=== PATIENT | male | born 1990 | race Caucasian/White ===

== ENCOUNTER 2020-01-01 20:01 | Emergency (ER) | payer BC, SELFPAY ==
--- NOTE | ~2020-01-01 | XR_ITS ---
EXAMINATION: XR chest 2V 01/01/2020 22:26 INDICATION: Chest pain PROCEDURE: 2 view chest COMPARISON: No prior studies for comparison. FINDINGS: The lungs are clear. The cardiomediastinal silhouette is within normal limits. There are no pleural effusions. There is no pneumothorax suspected. IMPRESSION: 1: NO ACUTE CARDIOPULMONARY DISEASE. Reviewed, dictated and finalized at location A.
[2020-01-01 20:16] VITALS: BP 156/99; PULSE 85; RESP 20; TEMP 36.7; O2SAT 100
--- NOTE | 2020-01-01 21:44 | ED.GENADULT ---
HPI - General Adult General Chief complaint: Unspecified Stated complaint: lightheadedness, chest tightness Time Seen by Provider: 01/01/20 21:44 Source: patient Mode of arrival: ambulatory Limitations: no limitations History of Present Illness HPI narrative: Patient is a 29-year-old male who presents for evaluation of lightheadedness, chest pain, tingling in his hands and fatigue. Patient reports a approximately 5-day history of all of the symptoms. He reports that chest pain has been constant over the right side of the chest. No radiation to the back, shoulder, jaw or left arm. No ripping or tearing sensation to the flank. No associated cough or shortness of breath. Patient states that he feels off and not his normal self. Patient is asking if we can check his cholesterol. He states he does not follow regularly with a primary care physician. He states he has a family history of heart disease. He denies any recent sick contacts. He denies fever, chills, rhinorrhea, cough or shortness of breath. No pleuritic chest pain. No recent surgery. Patient does have recent travel to [place] within the past month by car. No history of blood clots in the family. No lower extremity swelling, redness or pain. Related Data Home Medications Medication Instructions Recorded Confirmed No Home Medications 01/01/20 01/01/20 Allergies Allergy/AdvReac Type Severity Reaction Status Date / Time No Known Allergies Allergy Verified 01/01/20 20:02 Review of Systems Review of Systems: Narrative: CONSTITUTIONAL: Denies fever, chills, or sweats. EYES: Denies visual changes, redness, or discharge. ENT: Denies rhinorrhea, congestion, sore throat, or otalgia. CARDIOVASCULAR: Reports right-sided chest pain denies palpitations or edema RESPIRATORY: Denies cough or dyspnea. GASTROINTESTINAL: Denies abdominal pain, nausea, vomiting, or diarrhea. GENITOURINARY: Denies dysuria or hematuria. SKIN: Denies rash or itching. MUSCULOSKELETAL: Denies back pain, joint pain, or myalgia. NEUROLOGIC: Denies headache, numbness, or weakness. Reports lightheadedness. Denies dizziness. PSYCHIATRIC: Reports history of anxiety PMFSH Past Medical History Medical History (Updated 01/01/20 @ 23:31 by Samira Marcum MD) No pertinent past medical history Social History Social History (Updated 01/01/20 @ 22:05 by Samira Marcum MD) Smoking status: Never smoker Alcohol intake: never Substance use: never Living arrangements: with family Gender identity (if verbalized by the patient): Male Exam Narrative: Exam Narrative: GENERAL: Awake, alert, conversant HEAD: Normocephalic, atraumatic. EYES: PERRLA and EOMI. ENT: Nares clear, no rhinorrhea or epistaxis. Mucous membranes moist. NECK: Supple. CHEST: No respiratory distress, breathing even and non labored, no reproducible chest wall tenderness HEART: Regular rate, sinus rhythm ABDOMEN:Non distended, non tender EXTREMITIES: Normal range of motion. No edema. SKIN: Warm, dry, no rash. NEURO:No focal deficits. Alert and oriented x3. EOMs intact without nystagmus. No facial droop/asymmetry noted bilaterally. Grimace intact. Intact sensation in face. Hearing intact bilaterally. Shoulder shrug intact. Strength 5/5 bilateral upper extremities. Strength 5/5 bilateral lower extremities. Reflexes 2+ patellar. Heel to huynh intact bilaterally. Ambulatory with a narrow base, steady gait. Course Vital Signs Vital signs: Vital Signs Temperature 36.7 C 01/01/20 20:16 Pulse Rate 85 01/01/20 20:16 Respiratory Rate 20 01/01/20 20:16 Blood Pressure 156/99 H 01/01/20 20:16 Pulse Oximetry 100 01/01/20 20:16 Temperature 36.7 C 01/01/20 20:16 Pulse Rate 80 01/01/20 22:10 Respiratory Rate 18 01/01/20 22:10 Blood Pressure 167/95 H 01/01/20 22:10 Pulse Oximetry 98 01/01/20 22:10 Medical Decision Making MDM Narrative Medical decision making narrative: Patient presented for
--- NOTE | 2020-01-01 22:02 | ECG_ITS ---
Measurements Intervals [place] Rate: 78 P: 8 IN: 146 QRS: 4 QRSD: 96 T: 49 QT: 367 QTc: 418 Interpretive Statements SINUS RHYTHM VOLTAGE CRITERIA FOR LVH BORDERLINE ECG Electronically Signed On 01-02-2020 7:27:34 CDT by Alvarado Solano D.O.
[2020-01-01 22:10] VITALS: BP 167/95; PULSE 80; RESP 18; O2SAT 98
[2020-01-01 22:28] LABS: Basophils Percent Auto 0.4 % (0.2-1.2); Eosinophils Percent Auto 0.4 % (0-4.4); Hematocrit 48.3 % (42.0-52.0); Hemoglobin 16.5 g/dL (14.0-18.0); Immature Granulocyte Absolute 0.02 K/mm3 (0.00-0.031); Immature Granulocyte Percent A 0.2 % (0-0.5); Lymphocytes Absolute Auto 1.45 K/mm3 (0.9-3.2); Lymphocytes Percent Auto 13.8 % (18.3-44.2); Mean Corpuscular HGB Conc 34.2 g/dl (32-36); Mean Corpuscular Hemoglobin 27.5 pg (26-34); Mean Corpuscular Volume 80.5 fl (80-100); Mean Platelet Volume 9.3 fl (7.4-10.4); Monocytes Absolute Auto 0.6 K/mm3 (0.1-0.6); Monocytes Percent Auto 5.5 % (2.6-8.5); Neutrophils Absolute Auto 8.4 K/mm3 (1.3-6.7); Neutrophils Percent Auto 79.7 % (45.5-73.1); Platelet Count Result 383 k/mm3 (150-375); Red Cell Distribution Width 12.3 % (11.5-14.5); White Blood Count 10.5 K/mm3 (4.5-10.0)
[2020-01-01] MEDS: SODIUM CHLORIDE 0.9% IV 1,000 ML 999 ML IV CONT (22:28)
[2020-01-01] MEDS: ASPIRIN 81 MG CHEWABLE TABLET 324 MG PO (22:28)
[2020-01-01 22:40] LABS: Alanine Aminotransferase 35 U/L (4-50); Albumin Level 4.6 g/dL (3.5-5.1); Alkaline Phosphatase 67 U/L (38-126); Anion Gap 10 mmol/L (8-16); Aspartate Amino Transferase 26 U/L (17-59); Bilirubin,Total 0.5 mg/dL (0.2-1.3); Blood Urea Nitrogen 10 mg/dL (9-20); Calcium 9.3 mg/dL (8.4-10.2); Carbon Dioxide 23 mmol/L (22-30); Chloride 104 mmol/L (98-107); Estimated CRCL calculation 159 ml/min; Estimated Glomerular Filt Rate > 60; Glucose 132 mg/dL (75-110); Potassium 3.8 mmol/L (3.4-5.0); Sodium 137 mmol/L (137-145)
[2020-01-01 22:47] LABS: Add Urine Microscopic? YES; Appearance Urine Clear (Clear); Bacteria Urine Trace /hpf; Bilirubin Urine Negative (Negative); Blood Urine Negative (Negative); Color Urine Yellow (Yellow); Glucose Urine UA Negative (Negative); Ketones Urine Negative (Negative); Leukocyte Esterase Ur Negative LEU/UL (Negative); Mucus Urine Few /lpf; Nitrate Urine Negative (Negative); Protein Urine Negative (Negative); RBC Urine 0-2 /hpf (0-2); Specific Grav Ur 1.019 (1.001-1.035); Squamous Epithelial Cell Urine Rare /hpf (Few); Urobilinogen Urine Negative mg/dL (<2.0); WBC Urine 0-3 /hpf
[2020-01-01 22:52] LABS: NT Pro B Type Natriuretic Pept 25 PG/ML (5-100); Troponin I < 0.012 ng/mL (0.000-0.034)
[2020-01-01 23:07] LABS: Partial Thromboplastin Time 27.1 SECONDS (22.3-36.8)
[2020-01-01 23:09] LABS: D Dimer 0.38 ug/mL (<0.48)
[2020-01-02 00:17] VITALS: BP 151/87; PULSE 73; RESP 16; TEMP 37.1; O2SAT 100
[2020-01-02 13:28] LABS: SARS-CoV-2 RNA PCR Negative
== END 2020-01-02 00:19 | disposition home or self-care (01) ==
PROVIDERS: Emergency Provider Emergency Medicine; PCP Internal Medicine Infectious Disease
DX: R42 Dizziness and giddiness (principal); Z20.828 Contact with and (suspected) exposure to other viral communicable diseases
CPT/HCPCS: 36415; 71046; 80053; 81001; 83880; 84443; 84484; 85025; 85380; 85610; 85730; 87635; 93005; 96360; 99284; A9270; C9803; J7030; U0003

== ENCOUNTER 2021-08-24 13:39 | Emergency (ER) | payer BC, SELFPAY ==
--- NOTE | ~2021-08-24 | XR_ITS ---
EXAM: XR shoulder LT min 2V HISTORY: Musculoskeletal pain while working out, SNAPPED TENDONS COMPARISON: None available FINDINGS: Normal mineralization. No fracture or dislocation. No lytic or blastic lesion. Joint space s maintained. No erosion or periosteal change. Soft tissues within normal limits. IMPRESSION: No acute osseous finding in the left shoulder. Reviewed, dictated and finalized at location K.
[2021-08-24 13:40] VITALS: BP 171/80; PULSE 93; RESP 16; TEMP 37; O2SAT 100
--- NOTE | 2021-08-24 14:31 | ED.UPPEXIN ---
HPI - Extremity Injury (Upper) General Chief Complaint: Extremity Injury, Upper Stated Complaint: left shoulder Time Seen by Provider: 08/24/21 14:17 Source: patient and family Mode of arrival: ambulatory Limitations: no limitations History of Present Illness HPI narrative: Patient is 30 years old white male lifting weight, felt a snapping sensation to left shoulder anteriorly, 1 hour prior to arrival to the emergency room. Patient denies other symptoms. Patient denies any tingling, numbness or weakness of the left upper extremity. Related Data Allergies Allergy/AdvReac Type Severity Reaction Status Date / Time No Known Allergies Allergy Verified 01/01/20 20:02 Review of Systems Review of Systems: CONSTITUTIONAL: Denies fever, chills, or sweats. EYES: Denies visual changes, redness, or discharge. ENT: Denies rhinorrhea, congestion, sore throat, or otalgia. CARDIOVASCULAR: Denies chest pain, palpitations, or edema. RESPIRATORY: Denies cough or dyspnea. GASTROINTESTINAL: Denies abdominal pain, nausea, vomiting, or diarrhea. GENITOURINARY: Denies dysuria or hematuria. SKIN: Denies rash or itching. MUSCULOSKELETAL: Denies back pain, joint pain, or myalgia. NEUROLOGIC: Denies headache, numbness, or weakness. PSYCHIATRIC: Denies anxiety or depression. PMFSH Past Medical History Medical History No pertinent past medical history Social History Social History Smoking status: Never smoker Alcohol intake: never Substance use: never Gender identity (if verbalized by the patient): Male Exam Narrative: General appearance: Well-developed, well-nourished Skin: Normal color Head: Normocephalic, nontraumatic Neck: Supple, nontender Chest and respiratory: Airway patent, no respiratory distress, no accessory muscle use Heart: Regular rate/rhythm Abdomen: Soft, nontender, no organomegaly, quiet bowel sounds Vascular: Normal peripheral pulses, normal capillary refill. Musculoskeletal: Left shoulder showed diffuse tenderness anteriorly and left upper chest, no bruises, no swelling, no deformity Neurologic: Alert and oriented ?3, MIXER HELPER is normal as tested, no gross motor deficit Course Course Emergency Course: Musculoskeletal pain is my concern. Vital Signs Vital signs: Vital Signs Temperature 37.0 C 08/24/21 13:40 Pulse Rate 93 08/24/21 13:40 Respiratory Rate 16 08/24/21 13:40 Blood Pressure 171/80 H 08/24/21 13:40 Pulse Oximetry 100 08/24/21 13:40 Temperature 37.0 C 08/24/21 13:40 Pulse Rate 93 08/24/21 13:40 Respiratory Rate 16 08/24/21 13:40 Blood Pressure 171/80 H 08/24/21 13:40 Pulse Oximetry 100 08/24/21 13:40 MDM - Extremity Injury (Upper) Differential Diagnosis Differential diagnosis: Likely other (Strain, sprain, avulsion fracture) Imaging Data Radiologist's impression: Impressions Shoulder X-Ray 08/24/21 14:43 IMPRESSION: No acute osseous finding in the left shoulder. Critical Care Time Critical Care Time Critical Care Time: No Discharge Plan Discharge Clinical Impression: Musculoskeletal arm pain Qualifiers: Laterality: left Qualified Code(s): M79.602 - Pain in left arm Patient Disposition: Home, Self-Care Condition: Stable Instructions: Antibiotic Form, Musculoskeletal Pain (ED) Additional Instructions: Return if symptoms are worsening , call your family physician for appointment, take Tylenol as as needed for aches and pain, continue home medications. Ice pack 20 minutes/h for the next 24 hours, no working out for at least 1 week. Prescription
--- NOTE | 2021-08-24 15:15 | PC.NURSE ---
Patient report received from MICHELLE Gr. All questions answered and care of pt assumed.
--- NOTE | 2021-08-24 15:45 | PC.NURSE ---
Patient refused both [place] and Ibuprofen and states that he will get Flexeril prescription filled and take that at home instead.
== END 2021-08-24 16:00 | disposition home or self-care (01) ==
PROVIDERS: Emergency Provider Emergency Medicine
DX: S49.92XA Unspecified injury of left shoulder and upper arm, initial encounter (principal); X50.0XXA Overexertion from strenuous movement or load, initial encounter; Y93.B3 Activity, free weights
CPT/HCPCS: 73030; 99283; A4565

== ENCOUNTER 2023-03-23 08:07 | Emergency (ER) | payer BC, SELFPAY ==
--- NOTE | ~2023-03-23 | US_ITS ---
EXAMINATION: US venous doppler [facility] DATE: 03/23/2023 09:53 INDICATION: Left lower limb pain and swelling. TECHNIQUE: Grayscale ultrasound images without and with compression and Doppler ultrasound images of the left lower extremity veins were obtained. COMPARISON: None. FINDINGS: The visualized portions of left common femoral vein, profunda (deep) femoral vein, femoral vein, popl iteal vein, peroneal veins, posterior tibial veins, and greater saphenous vein outflow are patent. Th ere is thrombosis of superficial veins in left thigh and groin. IMPRESSION: 1. No deep venous thrombosis. 2 . Thrombosis of superficial veins in left thigh and groin. Reviewed, dictated and finalized at location A. RAL MIXER
[2023-03-23 08:10] VITALS: BP 118/75; PULSE 92; RESP 18; TEMP 36.1; O2SAT 100
--- NOTE | 2023-03-23 09:57 | ED.GENADULT ---
HPI - General Adult General Chief complaint: Extremity Injury, Lower Stated complaint: left upper leg wound (concerned about clot) Time Seen by Provider: 03/23/23 09:40 History of Present Illness HPI narrative: Dameon Stacy is a 32 y/o male who presents with reports of having a hx of varicose veins to his legs that he noticed about 5 years ago. He states that yesterday he noticed some increased pain to one of his varicose veins to his left upper thigh and today he noticed it was swollen and red. No numbness /tingling to his leg/ distal pulses present Related Data Home Medications Medication Instructions Recorded Confirmed hydroxyzine HCl 50 mg tablet mg 03/23/23 sertraline 50 mg tablet mg 03/23/23 Allergies Allergy/AdvReac Type Severity Reaction Status Date / Time No Known Allergies Allergy Verified 03/23/23 08:39 Review of Systems Review of Systems: CONSTITUTIONAL: Denies fever, chills, or sweats. EYES: Denies visual changes, redness, or discharge. ENT: Denies rhinorrhea, congestion, sore throat, or otalgia. CARDIOVASCULAR: Denies chest pain, palpitations, or edema. RESPIRATORY: Denies cough or dyspnea. GASTROINTESTINAL: Denies abdominal pain, nausea, vomiting, or diarrhea. GENITOURINARY: Denies dysuria or hematuria. SKIN: Denies rash or itching. MUSCULOSKELETAL: Denies back pain, Reports of having pain swelling to his left upper thigh area that started to be painful yesterday and swelling started today. NEUROLOGIC: Denies headache, numbness, dizziness, or weakness. PSYCHIATRIC: Denies anxiety or depression. PMFSH Past Medical History Medical History No pertinent past medical history Social History Social History Smoking status: Never smoker Alcohol intake: never Substance use: never Living arrangements: with family Gender identity (if verbalized by the patient): Male Exam Narrative: GENERAL: Well-appearing, well-nourished, and in no acute distress. HEAD: Normocephalic, atraumatic. EYES: PERRLA and EOMI. ENT: Nares clear, no rhinorrhea or epistaxis. Mucous membranes moist. Oropharynx without tonsillar hypertrophy exudate or other lesions. NECK: Supple. No adenopathy or masses. No carotid bruits or JVD CHEST: Clear to auscultation. No respiratory distress. No wheezes rales or rhonchi HEART: Regular rate and rhythm. No murmur heard. Normal peripheral pulses. ABDOMEN: Soft, nontender, nondistended, normal active bowel sounds. EXTREMITIES: Normal range of motion. There is an area of about 6 cm that is swollen/ hard to his left inner thigh area. - Distal pulses present no calf tenderenss. SKIN: Warm, dry, no rash. NEURO: No focal deficits. Alert and oriented x3. PSYCH: Normal mood and affect. Course Vital Signs Vital signs: Vital Signs Temperature 36.1 C L 03/23/23 08:10 Pulse Rate 92 03/23/23 08:10 Respiratory Rate 18 03/23/23 08:10 Blood Pressure 118/75 03/23/23 08:10 Pulse Oximetry 100 03/23/23 08:10 Temperature 36.1 C L 03/23/23 08:10 Pulse Rate 92 03/23/23 08:10 Respiratory Rate 18 03/23/23 08:10 Blood Pressure 118/75 03/23/23 08:10 Pulse Oximetry 100 03/23/23 08:10 Medical Decision Making MDM Narrative Medical decision making narrative: On exam pt is noted to have swelling redness to his left upper thigh that measure to be about 6 cm in length/ painful with palpation Distal pulses present no calf pain/tenderness noted. Concern for DVT/ superficial thrombosis/ thrombophlebitis/ Ultrasound shows : Thrombosis of superficial veins in left thigh and groin. Called radiology to confirm distance to the deep venous system and Radiology was able to confirm that this thrombosis does not connect wtih the Deep vein system Uptodate gives back and forth recommendations of anticoagulants vs watch and wait, collaborated with my attending
[2023-03-23] MEDS: ACETAMINOPHEN 500 MG TABLET 1000 MG PO (10:04)
[2023-03-23 12:08] VITALS: BP 125/80; PULSE 80; RESP 16; O2SAT 100
== END 2023-03-23 12:12 | disposition home or self-care (01) ==
PROVIDERS: Emergency Provider Nurse Practitioner Family
DX: I82.812 Embolism and thrombosis of superficial veins of left lower extremity (principal); Z79.899 Other long term (current) drug therapy
CPT/HCPCS: 93971; 99284; A9270

== ENCOUNTER 2023-04-02 14:15 | Emergency (ER) | payer BC, SELFPAY ==
--- NOTE | ~2023-04-02 | XR_ITS ---
EXAMINATION: XR elbow RT min 3V INDICATION: Right elbow pain TECHNIQUE: Three views of the right elbow are obtained. COMPARISON: None available FINDINGS: Bone alignment is normal. No fracture is identified. Lateral view is nonstandard limiting e valuation for joint effusion. IMPRESSION: 1. No acute osseous abnormality, lateral view nonstandard limiting evaluation for joint effusion. Reviewed, dictated and finalized at location F. ING STATION ENGINEER IMPRESSION: 1. No acute osseous abnormality, lateral view nonstandard limiting evaluation f or joint effusion.
[2023-04-02 14:31] VITALS: BP 147/90; PULSE 94; RESP 16; TEMP 36.5; O2SAT 100
--- NOTE | 2023-04-02 14:33 | ED.GENADULT ---
HPI - General Adult General Chief complaint: Extremity Injury, Upper Stated complaint: Right Elbow Injury Time Seen by Provider: 04/02/23 14:33 Source: patient, RN notes reviewed and old records reviewed Mode of arrival: ambulatory Limitations: no limitations History of Present Illness HPI narrative: 32-year-old male presents to the [facility] with complaints right elbow pain after feeling a pop in the elbow while punching a bag. States that he continued to punch the bag. No erythema, ecchymosis or swelling noted. Onset (ago): hour(s) Related Data Allergies Allergy/AdvReac Type Severity Reaction Status Date / Time No Known Allergies Allergy Verified 04/02/23 14:28 Review of Systems Review of Systems: All systems reviewed & are unremarkable except as noted in HPI and below Constitutional: Constitutional: Reports no additional constitutional complaints Eyes: Eyes: Reports no additional eye complaints ENT: Reports system reviewed and no additional complaints, except as documented Cardiovascular: Cardiovascular: Reports no additional cardiovascular complaints, Denies chest pain and Denies dyspnea Respiratory: Respiratory: Reports no additional respiratory complaints, Denies chest congestion, Denies cough and Denies dyspnea Gastrointestinal: Gastrointestinal: Reports no additional gastrointestinal complaints, Denies abdominal pain, Denies nausea and Denies vomiting Musculoskeletal: Musculoskeletal: Reports as per HPI, Denies deformity, Reports arthralgias (Right elbow), Denies joint swelling, Reports limited range of motion (right elbow), Denies muscle weakness, Denies neck pain, Denies numbness and Denies tingling Integumentary/Breasts: Skin/Breast: Reports system reviewed and no additional complaints, except as docu Neurologic: Reports system reviewed and no additional complaints, except as documented Psychiatric: Psychiatric: Reports no additional psychiatric complaints Allergic/Immunologic: Allergic/Immunologic: Reports no additional allergic/immunologic complaints [facility] Past Medical History Medical History Anxiety Superficial thrombophlebitis Family History Family History Mother Asthma Grandparent Diabetes mellitus Father Cerebrovascular accident Social History Social History Smoking status: Never smoker Alcohol intake: current Substance use: never Lack of Transportation: No Lack of Food: Never True Current Housing: I Have Housing Concerned About Future Housing: No Difficulty Paying Gas/Electric Bills: No Difficulty Paying for Meds: No Currently Unemployed: No Education: High School Diploma/GED Living arrangements: with family Occupation/Education: occupation Additional occupation/education comments: warehouse Gender identity (if verbalized by the patient): Male Comments At the time of my signature, I reviewed and agree with the nursing past medical, surgical, social, and family history. There is no relevant family history pertinent to the patient complaint. Exam Const: General: cooperative, healthy appearing, no acute distress, well developed, alert, anxious, uncomfortable, well nourished and obese Nutritional Appearance: well nourished and obese Orientation/consciousness: patient oriented x3 Limitations: no limitations HENMT: Head: normal to inspection Ears: hearing grossly normal bilaterally and external ears normal Face/Nose/Sinus: Normal external nose present, Normal nares present, Normal nasal mucous membranes and turbinates present, normal facial exam and face symmetric Face and sinus: normal facial exam and face symmetric Mouth: Yes lip normal Eyes: General: appearance normal, both eyes and all related structures Alignment and Position: alignment normal Periorbital: periorbital findings norm
== END 2023-04-02 14:58 | disposition home or self-care (01) ==
PROVIDERS: Emergency Provider Nurse Practitioner; PCP Family Medicine
DX: S56.911A Strain of unspecified muscles, fascia and tendons at forearm level, right arm, initial encounter (principal); X50.3XXA Overexertion from repetitive movements, initial encounter; F41.9 Anxiety disorder, unspecified
CPT/HCPCS: 73080; 99213; A4565; G0463